=== PATIENT | male | born 1950 | race African-American/Black ===

== ENCOUNTER 2016-11-20 13:11 | Emergency (ER) | payer MEDICARE, OTHER ==
[~2016-11-20] VITALS: Ht 190.5 cm; Wt 129.3 kg
[~2016-11-20 13:11] MED LIST: ALBUTEROL SULF8.5 GM INH; AZITHROMYCIN250 MG ORAL; BACTRIM-DS1 EA ORAL; KEFLEX500 MG ORAL; MOTRIN600 MG ORAL; NORCO 5/3251 TAB ORAL; PREDNISONE20 MG ORAL
[2016-11-20 13:22] VITALS: BP 132/69
[2016-11-20] MEDS ORDERED: Ketorolac 60mg Inj IM ONE (13:45)
--- NOTE | 2016-11-20 14:02 | Emergency Room Report ---
History of Present Illness General Chief Complaint: Pain Source: Patient Present Illness HPI 66-year-old male presents emergency department complaining of right-sided knee pain and swelling x1 week. Patient reports pain is 6/10 in severity. Patient states that he has been diagnosed with arthritis of the right knee and intermittently has pain with swelling which is usually treated with anti- inflammatory medications in addition to joint injections. Patient states that he is unable to obtain an appointment soon with his PCP he states that his appointment in several months out. He denies fall or new trauma. Patient denies erythema, increased to palpation, fevers. Denies numbness tingling or loss of sensation or gross motor movements of the extremities, incontinence of bowel or bladder. Denies CP, Palpitations, LOC, AMS, dizziness, Changes in Vision, Sensation, paresthesias, or a sudden severe headache. Allergies: Coded Allergies: No Known Allergies (Unverified , 04/19/13) Patient History Past Medical History: see triage record Past Surgical History: none Pertinent Family History: none Immunizations: UTD Reviewed Nursing Documentation: PMH: Agreed, PSxH: Agreed Nursing Documentation-PMH Hx Cardiac Problems: No Hx Hypertension: No Hx Pacemaker: No Hx Asthma: No Hx COPD: No Hx Diabetes: Yes - controlled, no current medications Hx Cancer: No Hx Gastrointestinal Problems: Yes Hx Dialysis: No Hx Neurological Problems: No Hx Cerebrovascular Accident: No Hx Seizures: No Review of Systems All Other Systems: negative except mentioned in HPI Physical Exam Vital Signs Date Time Temp Pulse Resp B/P Pulse Ox O2 Delivery O2 Flow Rate FiO2 11/20/16 13:22 97.7 79 18 132/69 95 Room Air Sp02 EP Interpretation: reviewed, normal General Appearance: no apparent distress, alert, GCS 15, non-toxic Head: normocephalic, atraumatic Eyes: bilateral eye PERRL, bilateral eye normal inspection ENT: hearing grossly normal, normal pharynx, no angioedema, normal voice Neck: full range of motion, supple/symm/no masses Respiratory: lungs clear, normal breath sounds, speaking full sentences Cardiovascular #1: regular rate, rhythm, no edema Musculoskeletal: back normal, gait/station normal, normal range of motion, swelling - mild sweling noted to the right knee, no appreciable effusion palpated, no increased laxity. , tender - TTP to the lateral right knee, no erythema, no obvious deformity, FORM with pain. Neurologic: alert, oriented x3, responsive, motor strength/tone normal, sensory intact, speech normal Psychiatric: judgement/insight normal, memory normal, mood/affect normal, no suicidal/homicidal ideation Skin: normal color, no rash, warm/dry, well hydrated Lymphatic: no adenopathy Medical Decision Making PA Attestation Dr. Donis is my supervising Physician whom patient management has been discussed with. Diagnostic Impression: Primary Impression: Arthritis of knee, right ER Course 66-year-old male presents emergency department complaining of right-sided knee pain and swelling x1 week. Patient reports pain is 6/10 in severity. Patient states that he has been diagnosed with arthritis of the right knee and intermittently has pain with swelling which is usually treated with anti- inflammatory medications in addition to joint injections. Patient states that he is unable to obtain an appointment soon with his PCP he states that his appointment in several months out. He denies fall or new trauma. Patient denies erythema, increased to palpation, fevers. Ddx considered but are not limited to Fracture, dislocation, contusion, Sprain/ Strain/Spasm, septic joint, cellulitis, effusion. Vital signs: are WNL, pt. is afebrile H&PE are most consistent with arthritis of the right knee, no evidence of infection , no recent trauma. ORDERS: - X-ray not required at this time, no trauma/fall, hx of arthritis and knee swelling. ED INTERVENTIONS: - 60mg IM Toradol - Rob wrap applied to the right knee by audiovisual technician. Pt. remains neurovascularly intact. DISCHARGE: At this time pt. is stable for d/c to home. Will provide printed patient care instructions, and any necessary prescriptions. Care plan and follow up instructions have been discussed with the patient prior to discharge. Last Vital Signs Date Time Temp Pulse Resp B/P Pulse Ox O2 Delivery O2 Flow Rate FiO2 11/20/16 13:22 97.7 98 18 132/69 95 Room Air Disposition: HOME, SELF-CARE Condition: Stable Scripts Naproxen* (NAPROSYN*) 375 Mg Tablet 375 MG ORAL TWICE A DAY, #14 TAB 0 Refills Prov: Jeanie Schafer.Luly. 11/20/16 Patient Instructions: Knee Effusion, [id number] Additional Instructions: Take medications as directed. Follow up with PCP in 3-5 days Return sooner to ED if new symptoms occur, or current symptoms become worse. - Please note that this Emergency Department Report was dictated using Slingjot[employer]bot[employer]ist prn technology software, occasionally this can lead to erroneous entry secondary to interpretation by the dictation equipment. Jeanie Schafer Nov 20, 2016 14:02
[2016-11-20] MEDS ORDERED: NAPROXEN375 MG ORAL (14:07)
[2016-11-20 14:39] VITALS: BP 120/68
[2016-11-20 14:40] VITALS: BP 120/68
== END 2016-11-20 14:42 | disposition home or self-care (01) ==
LOC: EMR 13:50
DX: M13.861 Other specified arthritis, right knee (principal); E11.9 Type 2 diabetes mellitus without complications
CPT/HCPCS: 29530; 96372; 99283

== ENCOUNTER 2017-10-05 11:41 | Emergency (ER) | payer MEDICARE, OTHER ==
[~2017-10-05] VITALS: Ht 190.5 cm; Wt 127.0 kg
[~2017-10-05 11:41] MED LIST changes: +NAPROXEN375 MG ORAL
[2017-10-05 12:01] VITALS: BP 128/71
--- NOTE | 2017-10-05 12:14 | Emergency Room Report ---
History of Present Illness General Chief Complaint: General Complaint Source: Patient, Medical Record Present Illness HPI 67 yo male presents to ER for right eyelid pain for "a few days". Patient states the pain has gotten worse. Patient reports crusting of eyes last night; states he does not know the color. Patient denies foreign body sensation. Patient denies vision changes. Patient reports history of styes in the past. Patient reports he wears glasses, denies use of contact lenses. Patient fever, chest pain, SOB, rash, ear pain, sore throat. Allergies: Coded Allergies: No Known Allergies (Unverified , 04/19/13) Patient History Past Medical History: see triage record Pertinent Family History: none Reviewed Nursing Documentation: PMH: Agreed, PSxH: Agreed Nursing Documentation-PMH Past Medical History: No History, Except For Hx Cardiac Problems: No - 'right knee problem' Hx Hypertension: Yes Hx Pacemaker: No Hx Asthma: No Hx COPD: No Hx Diabetes: Yes Hx Cancer: No Hx Gastrointestinal Problems: Yes Hx Dialysis: No History Of Psychiatric Problem: No Hx Neurological Problems: No Hx Cerebrovascular Accident: No Hx Seizures: No Review of Systems All Other Systems: negative except mentioned in HPI Physical Exam Vital Signs Date Time Temp Pulse Resp B/P (MAP) Pulse Ox O2 Delivery O2 Flow Rate FiO2 10/05/17 11:46 98.2 84 16 128/71 94 Room Air Sp02 EP Interpretation: reviewed, normal General Appearance: no apparent distress, alert, GCS 15, non-toxic Head: normocephalic, atraumatic Eyes: bilateral eye normal inspection, bilateral eye PERRL, bilateral eye EOMI , bilateral eye other - no corneal injection ENT: hearing grossly normal, normal voice, uvula midline, moist mucus membranes Respiratory: chest non-tender, lungs clear, normal breath sounds, speaking full sentences Cardiovascular #1: regular rate, rhythm, no edema Musculoskeletal: back normal, gait/station normal, normal range of motion, non- tender Neurologic: alert, oriented x3, responsive, motor strength/tone normal, sensory intact, speech normal Psychiatric: mood/affect normal Skin: normal color, no rash, warm/dry, well hydrated, other - right upper eyelid: erythema, mild, mild TTP, no drainage Medical Decision Making PA Attestation Dr. Diamond is my supervising Physician whom patient management has been discussed with. Diagnostic Impression: Primary Impression: Blepharitis of eyelid of right eye ER Course Pt. presents to the ED c/o swollen right upper eyelid. Ddx considered but are not limited to allergic conjunctivitis, bacterial conjunctivitis, blepharitis, hordeolum, chalazion. Vital signs: are WNL, pt. is afebrile VA is 20/20 per nursing chart. Patient reports he does not wear contact lenses. ORDERS: none required at this time, the diagnosis is clinical ED INTERVENTIONS: None required at this time. DISCHARGE: Rx provided for Gentamicin ophthalmic drops. At this time pt. is stable for d/c to home. Patient instructed to observe proper eye hygiene. Will provide printed patient care instructions, and any necessary prescriptions. Patient instructed to follow up with legger press operator and discuss further follow up with ophthamologist. Care plan and follow up instructions have been discussed with the patient prior to discharge Last Vital Signs Date Time Temp Pulse Resp B/P (MAP) Pulse Ox O2 Delivery O2 Flow Rate FiO2 10/05/17 12:01 98.2 80 16 128/71 96 Room Air Disposition: HOME, SELF-CARE Condition: Stable Scripts Gentamicin Sulfate* (GENTAMICIN SULFATE*) 3.5 Gm Oint...g. 3.5 GM OP TID for 7 Days, GM Prov: Brown Parker 10/05/17 Patient Instructions: Blepharitis, [id number] Additional Instructions: Followup with primary care provider in 2-3 days to discuss referral to ophthalmology Observe proper eye hygiene practices. Take medications as directed. Patient questions asked and answered. ER precautions given, patient instructed to return to ER immediately for any new or worsening of symptoms. Brown Parker Oct 05, 2017 12:14
[2017-10-05] MEDS ORDERED: GENTAMICIN SUL3.5 GM OP (12:29)
[2017-10-05 12:48] VITALS: BP 128/71
== END 2017-10-05 12:53 | disposition home or self-care (01) ==
LOC: EMR 12:24
DX: H01.001 Unspecified blepharitis right upper eyelid (principal); E11.9 Type 2 diabetes mellitus without complications; I10 Essential (primary) hypertension
CPT/HCPCS: 99283

== ENCOUNTER 2018-01-05 08:26 | Emergency (ER) | payer MEDICARE, MEDICAID ==
[~2018-01-05] VITALS: Ht 190.5 cm; Wt 124.7 kg
[~2018-01-05 08:26] MED LIST changes: +GENTAMICIN SUL3.5 GM OP
[2018-01-05] MEDS ORDERED: ENALAPRIL MALE2.5 MG ORAL (08:39)
[2018-01-05] MEDS ORDERED: METHADONE H5 MG/5 ML PO (08:39)
[2018-01-05] MEDS ORDERED: METFORMIN HCL500 M1 ORAL (08:39)
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
[2018-01-05] MEDS ORDERED: HYDROcodone/Acetamin 10/325 tab ORAL ONE (09:00)
[2018-01-05 09:21] LABS: APPEARANCE,URINE CLEAR; BILIRUBIN, URINE NEGATIVE (NEGATIVE); COLOR,URINE YELLOW; GLUCOSE, URINE (UA) NEGATIVE (NEGATIVE); KETONES,URINE NEGATIVE (NEGATIVE); NITRITE,URINE NEGATIVE (NEGATIVE); PH,URINE 7 (4.5-8.0); PROTEIN,URINE 1+ (NEGATIVE)
[2018-01-05 09:22] LABS: LEUKOCYTE ESTERASE ,URINE 3+ (NEGATIVE); UROBILINOGEN,URINE 1 MG/DL (0.0-1.0)
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
[2018-01-05 10:18] LABS: BASOPHILS % (AUTO) 1.2 % (0.0-2.0); EOSINOPHILS % (AUTO) 0.2 % (0.0-3.0); HEMATOCRIT 39.8 % (42.0-52.0); HEMOGLOBIN 13.1 G/DL (14.2-18.0); MEAN CORPUSCULAR VOLUME 95 FL (80-99); MONOCYTES % (AUTO) 4.9 % (1.0-10.0); NEUTROPHILS % (AUTO) 74.7 % (45.0-75.0); PLATELET COUNT 207 K/UL (150-450); RED BLOOD COUNT 4.19 M/UL (4.70-6.10); WHITE BLOOD COUNT 13.7 K/UL (4.8-10.8)
[2018-01-05 10:31] LABS: ANION GAP 8 mmol/L (5-15); BLOOD UREA NITROGEN 17 mg/dL (7-18); CALCIUM 9.2 MG/DL (8.5-10.1); CARBON DIOXIDE 25 MMOL/L (21-32); CHLORIDE 99 MMOL/L (98-107); POTASSIUM 5.2 MMOL/L (3.5-5.1); SODIUM 132 MMOL/L (136-145)
[2018-01-05 10:41] LABS: ALANINE AMINOTRANSFERASE 22 U/L (12-78); ALBUMIN 3.5 G/DL (3.4-5.0); ALBUMIN/GLOBULIN RATIO 0.6 (1.0-2.7); ALKALINE PHOSPHATASE 149 U/L (46-116); ASPARTATE AMINO TRANSFERASE 38 U/L (15-37)
[2018-01-05] MEDS ORDERED: Cephalexin 500mg cap ORAL ONE (11:15)
[2018-01-05 11:16] VITALS: BP 105/64
[2018-01-05] MEDS ORDERED: KEFLEX500 MG ORAL (11:46)
[2018-01-05] MEDS ORDERED: ACETAMINOPHEN-1 EAC1 ORAL (11:46)
[2018-01-05 12:14] VITALS: BP 122/71
== END 2018-01-05 12:14 | disposition home or self-care (01) ==
LOC: EMR 09:15
DX: N39.0 Urinary tract infection, site not specified (principal); I10 Essential (primary) hypertension; E11.9 Type 2 diabetes mellitus without complications; K21.9 Gastro-esophageal reflux disease without esophagitis; K80.20 Calculus of gallbladder without cholecystitis without obstruction
CPT/HCPCS: 36415; 74176; 80053; 81003; 83690; 85025; 87086; 87181; 99284